=== PATIENT | male | born 1960 | race African-American/Black ===

== ENCOUNTER 2016-10-26 23:27 | Emergency (ER) | payer OTHER ==
[~2016-10-26] VITALS: Ht 170.2 cm; Wt 78.0 kg
[~2016-10-26 23:27] MED LIST: ALLO100T PO; AMLO5TAB4 PO; ASPI81TA2 PO; CLOP75TA2 PO; ISOS60TA4 PO; METO50TA5 PO; OMEP40CA34 PO; TRIC54 PO; ZOLP10TA6 PO
[2016-10-27] MEDS ORDERED: ONDANSETRON HCL 4MG/2ML VIAL IV STA (00:34)
[2016-10-27] MEDS ORDERED: MORPHINE SULFATE 4 MG/ML CPJ (NOT FOR IM USE) IV STA (00:34)
[2016-10-27] MEDS ORDERED: SODIUM CHLORIDE 0.9% 1,000 ML IV ONE (00:34)
[2016-10-27 01:02] LABS: BASOPHILS % 0.8 % (0.0-2.0); EOSINOPHILS % 3.7 % (0.0-5.0); HEMATOCRIT. 39.1 % (42.0-52.0); HEMOGLOBIN. 13.5 g/dL (14.0-18.0); LYMPHOCYTES % 29.6 % (20.0-50.0); MEAN CORPUSCULAR HEMOGLOBIN 30.3 pg (28.0-32.0); MEAN CORPUSCULAR HGB CONC 34.4 g/dL (31.0-37.0); MEAN CORPUSCULAR VOLUME 88.2 fL (80.0-94.0); MEAN PLATELET VOLUME 7.5 fl (7.4-10.4); MONOCYTES % 8.3 % (2.0-8.0); NEUTROPHILS % 57.6 % (40.0-76.0); PLATELET 271 x1000/uL (130-400); RED BLOOD CELL COUNT 4.44 mill/uL (4.7-6.1); RED CELL DISTRIBUTION WIDTH 15.2 % (11.6-14.6); WHITE BLOOD COUNT 7.3 x1000/uL (4.5-11.0)
[2016-10-27 01:06] LABS: CHLORIDE 109 mEq/L (98-107); INDEX HEMOLYSI 2 (1-3); INDEX ICTERIC 1 (1-4); INDEX LIPEMIC 1 (1-3)
[2016-10-27 01:09] LABS: INR 0.9; PARTIAL THROMBOPLASTIN TIME 32.8 sec (24.0-34.0); PROTHROMBIN TIME 9.8 sec
[2016-10-27 01:16] LABS: ALANINE AMINOTRANSFERASE 31 IU/L (13-61); ALBUMIN 3.2 g/dL (3.4-5.0); ANION GAP 18; CALCIUM 8.4 mg/dL (8.5-10.1); CARBON DIOXIDE 19 mEq/L (21-32); UREA NITROGEN BLOOD 13 mg/dL (7-21); eGFR > 60 mL/min (>60)
[2016-10-27 01:38] LABS: LIPASE 4657 IU/L (73-393)
[2016-10-27 02:12] LABS: CLARITY URINE CLEAR (CLEAR); COLOR URINE YELLOW (YELLOW); GLUCOSE URINE NEGATIVE (NEGATIVE); KETONES URINE TRACE (NEGATIVE); LEUKOCYTE ESTERASE URINE NEGATIVE (NEGATIVE); NITRITE URINE NEGATIVE (NEGATIVE); OCCULT BLOOD URINE NEGATIVE (NEGATIVE); PH URINE 5.5 (4.5-8.0); PROTEIN URINE TRACE (NEGATIVE); SPECIFIC GRAVITY URINE 1.023 (1.005-1.030)
[2016-10-27 02:15] LABS: BACTERIA URINE NONE SEEN; CALCIUM PHOSPHATE CRYSTALS UR NONE SEEN /lpf; RBC URINE NONE SEEN /hpf (0-2); SQUAMOUS EPITHELIAL CELL URINE NONE SEEN /lpf (RARE/1+); WAXY CASTS URINE NONE SEEN /lpf; WBC URINE 0-2 /hpf (0-2); YEAST URINE NONE SEEN
[2016-10-27] MEDS ORDERED: ONDANSETRON HCL 4MG/2ML VIAL IV ONE (03:30)
[2016-10-27] MEDS ORDERED: MORPHINE SULFATE 4 MG/ML CPJ (NOT FOR IM USE) IV ONE (03:30)
[2016-10-27 04:14] VITALS: BP 114/72
[2016-10-27] MEDS ORDERED: IOHEXOL-300 100 ML BOTTLE ONE (10:45)
[2016-10-27] MEDS ORDERED: SODIUM CHLORIDE 0.9% 10ML VIAL ONE (10:45)
== END 2016-10-27 05:18 | disposition short-term general hospital (02) ==
LOC: ER 10-27 00:33
DX: K85.90 Acute pancreatitis without necrosis or infection, unspecified (principal); Z79.899 Other long term (current) drug therapy; Z79.82 Long term (current) use of aspirin; F17.200 Nicotine dependence, unspecified, uncomplicated; K80.20 Calculus of gallbladder without cholecystitis without obstruction
CPT/HCPCS: 36415; 74177; 76705; 80053; 81001; 83690; 85025; 85610; 85730; 96361; 96374; 96375; 96376; 99285; A4216; J2270; J2405; J7030; Q9967; Z7610

== ENCOUNTER 2017-01-07 16:12 | Emergency (ER) | payer OTHER ==
[~2017-01-07] VITALS: Ht 170.2 cm; Wt 78.0 kg
[2017-01-07] MEDS ORDERED: ONDANSETRON HCL 4MG/2ML VIAL IV STA (17:03)
[2017-01-07] MEDS ORDERED: MORPHINE SULFATE 4 MG/ML CPJ (NOT FOR IM USE) IV STA (17:03)
[2017-01-07] MEDS ORDERED: SODIUM CHLORIDE 0.9% 1,000 ML IV ONE (17:03)
[2017-01-07] MEDS ORDERED: METRONIDAZOLE 500 MG PREMIX 100 ML IV ONE (17:15)
[2017-01-07] MEDS ORDERED: LEVOFLOXACIN 750MG PREMIX 150 ML IV ONE (17:15)
[2017-01-07 17:31] LABS: BASOPHILS % 0.4 % (0.0-2.0); EOSINOPHILS % 1.9 % (0.0-5.0); HEMATOCRIT. 36.2 % (42.0-52.0); HEMOGLOBIN. 12.7 g/dL (14.0-18.0); LYMPHOCYTES % 25.3 % (20.0-50.0); MEAN CORPUSCULAR HEMOGLOBIN 29.6 pg (28.0-32.0); MEAN CORPUSCULAR VOLUME 84.7 fL (80.0-94.0); MEAN PLATELET VOLUME 7.8 fl (7.4-10.4); MONOCYTES % 7.1 % (2.0-8.0); NEUTROPHILS % 65.3 % (40.0-76.0); PLATELET 252 x1000/uL (130-400); RED BLOOD CELL COUNT 4.28 mill/uL (4.7-6.1); RED CELL DISTRIBUTION WIDTH 14.8 % (11.6-14.6)
[2017-01-07 17:36] LABS: PROTHROMBIN TIME 10.2 sec
[2017-01-07 17:37] LABS: CARBON DIOXIDE 24 mEq/L (21-32); CHLORIDE 107 mEq/L (98-107)
[2017-01-07 17:43] LABS: TROPONIN I < 0.02 ng/mL (0.00-0.04)
[2017-01-07 18:22] LABS: CLARITY URINE CLEAR (CLEAR); COLOR URINE YELLOW (YELLOW); GLUCOSE URINE NEGATIVE (NEGATIVE); KETONES URINE NEGATIVE (NEGATIVE); LEUKOCYTE ESTERASE URINE NEGATIVE (NEGATIVE); NITRITE URINE NEGATIVE (NEGATIVE); OCCULT BLOOD URINE NEGATIVE (NEGATIVE); PROTEIN URINE NEGATIVE (NEGATIVE); SPECIFIC GRAVITY URINE 1.014 (1.005-1.030); UROBILINOGEN URINE 0.2 E.U./dL (0.2-1.0)
[2017-01-07 20:27] VITALS: BP 130/75
== END 2017-01-07 21:30 | disposition home or self-care (01) ==
LOC: ER 17:01 → CANBEDREQ 21:34
DX: K57.92 Diverticulitis of intestine, part unspecified, without perforation or abscess without bleeding (principal); K85.90 Acute pancreatitis without necrosis or infection, unspecified; R10.32 Left lower quadrant pain; F17.200 Nicotine dependence, unspecified, uncomplicated; Z79.82 Long term (current) use of aspirin; Z79.899 Other long term (current) drug therapy
CPT/HCPCS: 36415; 71010; 74176; 80053; 81003; 83605; 83690; 84484; 85025; 85610; 87040; 87086; 93005; 96365; 96366; 96368; 96375; 99285; 99406; J1956; J2270; J2405; J3490; J7030

== ENCOUNTER 2017-04-22 16:54 | Emergency (ER) | payer OTHER ==
[~2017-04-22] VITALS: Ht 170.2 cm; Wt 78.0 kg
[~2017-04-22 16:54] MED LIST changes: +ASPI-1160 PO; -ASPI81TA2 PO; +CLOP75TA16 PO; -CLOP75TA2 PO
[2017-04-22] MEDS ORDERED: MORPHINE SULFATE 4 MG/ML CPJ (NOT FOR IM USE) IV STA (17:37)
[2017-04-22] MEDS ORDERED: ONDANSETRON HCL 4MG/2ML VIAL IV STA (17:37)
[2017-04-22 18:09] LABS: BASOPHILS % 0.8 % (0.0-2.0); EOSINOPHILS % 2.2 % (0.0-5.0); HEMATOCRIT. 37.3 % (42.0-52.0); HEMOGLOBIN. 12.8 g/dL (14.0-18.0); LYMPHOCYTES % 23.5 % (20.0-50.0); MEAN CORPUSCULAR HEMOGLOBIN 29.1 pg (28.0-32.0); MEAN CORPUSCULAR VOLUME 84.8 fL (80.0-94.0); MONOCYTES % 6.7 % (2.0-8.0); NEUTROPHILS % 66.8 % (40.0-76.0); PLATELET 220 x1000/uL (130-400); RED CELL DISTRIBUTION WIDTH 15.2 % (11.6-14.6)
[2017-04-22 18:14] LABS: CARBON DIOXIDE 23 mEq/L (21-32); CHLORIDE 111 mEq/L (98-107)
[2017-04-22 18:20] LABS: ETHANOL BLOOD 35 mg/dL
[2017-04-22] MEDS ORDERED: METRONIDAZOLE 500 MG PREMIX 100 ML IV ONE (20:30)
[2017-04-22] MEDS ORDERED: LEVOFLOXACIN 500MG PREMIX 100 ML IV ONE (20:30)
[2017-04-22] MEDS ORDERED: MORPHINE SULFATE 4 MG/ML CPJ (NOT FOR IM USE) IV ONE (22:30)
[2017-04-22] MEDS ORDERED: ONDANSETRON HCL 4MG/2ML VIAL IV ONE (22:30)
[2017-04-22 22:39] LABS: CLARITY URINE CLEAR (CLEAR); COLOR URINE YELLOW (YELLOW); GLUCOSE URINE NEGATIVE (NEGATIVE); KETONES URINE TRACE (NEGATIVE); LEUKOCYTE ESTERASE URINE NEGATIVE (NEGATIVE); NITRITE URINE NEGATIVE (NEGATIVE); OCCULT BLOOD URINE NEGATIVE (NEGATIVE); PH URINE 5.5 (4.5-8.0); PROTEIN URINE NEGATIVE (NEGATIVE); SPECIFIC GRAVITY URINE 1.018 (1.005-1.030)
[2017-04-22 22:46] VITALS: BP 133/80
== END 2017-04-22 23:28 | disposition short-term general hospital (02) ==
LOC: ER 16:54
DX: K80.20 Calculus of gallbladder without cholecystitis without obstruction (principal); K57.92 Diverticulitis of intestine, part unspecified, without perforation or abscess without bleeding; F17.200 Nicotine dependence, unspecified, uncomplicated; Z79.82 Long term (current) use of aspirin
CPT/HCPCS: 36415; 74176; 80053; 81003; 83690; 85025; 96365; 96375; 96376; 99285; G0482; J1956; J2270; J2405; J3490; J7030; Z7610

== ENCOUNTER 2017-05-13 19:48 | Emergency (ER) | payer OTHER ==
[~2017-05-13] VITALS: Ht 170.2 cm; Wt 79.0 kg
[2017-05-14] MEDS ORDERED: SODIUM CHLORIDE 0.9% 1,000 ML IV ONE (03:41)
[2017-05-14] MEDS ORDERED: MORPHINE SULFATE 4 MG/ML CPJ (NOT FOR IM USE) IV ONE (03:45)
[2017-05-14] MEDS ORDERED: ONDANSETRON HCL 4MG/2ML VIAL IV ONE (03:45)
[2017-05-14 04:17] LABS: BASOPHILS % 0.5 % (0.0-2.0); EOSINOPHILS % 2.2 % (0.0-5.0); HEMATOCRIT. 37.3 % (42.0-52.0); HEMOGLOBIN. 12.8 g/dL (14.0-18.0); LYMPHOCYTES % 25.3 % (20.0-50.0); MEAN CORPUSCULAR HEMOGLOBIN 28.9 pg (28.0-32.0); MEAN CORPUSCULAR VOLUME 84.7 fL (80.0-94.0); MEAN PLATELET VOLUME 8.3 fl (7.4-10.4); MONOCYTES % 7.1 % (2.0-8.0); NEUTROPHILS % 64.9 % (40.0-76.0); PLATELET 215 x1000/uL (130-400); PROTHROMBIN TIME 10.4 sec (9.4-11.6); RED BLOOD CELL COUNT 4.41 mill/uL (4.7-6.1); RED CELL DISTRIBUTION WIDTH 14.8 % (11.6-14.6)
[2017-05-14 04:24] LABS: CARBON DIOXIDE 27 mEq/L (21-32); CHLORIDE 106 mEq/L (98-107)
[2017-05-14 06:14] VITALS: BP 124/81
[2017-05-14 06:30] LABS: CLARITY URINE CLEAR (CLEAR); COLOR URINE YELLOW (YELLOW); GLUCOSE URINE NEGATIVE (NEGATIVE); KETONES URINE NEGATIVE (NEGATIVE); LEUKOCYTE ESTERASE URINE NEGATIVE (NEGATIVE); NITRITE URINE NEGATIVE (NEGATIVE); OCCULT BLOOD URINE NEGATIVE (NEGATIVE); PROTEIN URINE NEGATIVE (NEGATIVE); SPECIFIC GRAVITY URINE 1.014 (1.005-1.030); UROBILINOGEN URINE 0.2 E.U./dL (0.2-1.0)
[2017-05-14 06:39] LABS: *AMPHETAMINES SCREEN URINE NEGATIVE (NEGATIVE); *BARBITURATES SCREEN URINE NEGATIVE (NEGATIVE); *BENZODIAZEPINES SCREEN URINE NEGATIVE (NEGATIVE); *COCAINE SCREEN URINE NEGATIVE (NEGATIVE); CANNABINOID URINE SCREEN NEGATIVE (NEGATIVE); METHADONE URINE SCREEN NEGATIVE (NEGATIVE); OPIATES URINE SCREEN PRESUMTIVE POSITIVE (NEGATIVE); PHENCYCLIDINE URINE SCREEN NEGATIVE (NEGATIVE)
== END 2017-05-14 06:46 | disposition home or self-care (01) ==
LOC: ER 19:48
DX: R10.13 Epigastric pain (principal); R14.0 Abdominal distension (gaseous)
CPT/HCPCS: 36415; 80053; 80305; 81003; 83690; 85025; 85610; 96361; 96374; 96375; 99285; G0482; J2270; J2405; J7030; Z7610

== ENCOUNTER 2017-07-22 08:25 | Inpatient (IN) | payer OTHER ==
[~2017-07-22] VITALS: Ht 170.2 cm; Wt 73.9 kg
[~2017-07-22 08:25] MED LIST changes: +METO-539 PO; -METO50TA5 PO
[2017-07-22] MEDS ORDERED: ONDANSETRON HCL 4MG/2ML VIAL IV STA (09:45)
[2017-07-22] MEDS ORDERED: KETOROLAC 30MG/ML VIAL IV STA (09:45)
[2017-07-22] MEDS ORDERED: SODIUM CHLORIDE 0.9% 1,000 ML IV ONE (09:45)
[2017-07-22] MEDS ORDERED: FAMOTIDINE 20MG/2ML VIAL IV STA (09:45)
[2017-07-22 10:00] LABS: BASOPHILS % 0.7 % (0.0-2.0); HEMATOCRIT. 38.2 % (42.0-52.0); HEMOGLOBIN. 13.3 g/dL (14.0-18.0); LYMPHOCYTES % 10.4 % (20.0-50.0); MEAN CORPUSCULAR HEMOGLOBIN 30.6 pg (28.0-32.0); MEAN CORPUSCULAR VOLUME 87.9 fL (80.0-94.0); MEAN PLATELET VOLUME 7.7 fl (7.4-10.4); MONOCYTES % 5.8 % (2.0-8.0); NEUTROPHILS % 82.1 % (40.0-76.0); PLATELET 245 x1000/uL (130-400); RED BLOOD CELL COUNT 4.35 mill/uL (4.7-6.1); RED CELL DISTRIBUTION WIDTH 15.5 % (11.6-14.6)
[2017-07-22 10:07] LABS: INR 1.1; PROTHROMBIN TIME 11.8 sec (9.4-11.6)
[2017-07-22 10:38] LABS: CARBON DIOXIDE 25 mEq/L (21-32); CHLORIDE 107 mEq/L (98-107)
[2017-07-22] MEDS ORDERED: MORPHINE SULFATE 4 MG/ML CPJ (NOT FOR IM USE) IV ONE (11:15)
[2017-07-22 12:20] VITALS: BP 123/74
[2017-07-22 14:20] VITALS: BP 123/74
[2017-07-22] MEDS ORDERED: ACETAMINOPHEN 325MG TABLET PO PRN (15:15)
[2017-07-22] MEDS ORDERED: CLONIDINE 0.1MG TABLET PO PRN (15:15)
[2017-07-22] MEDS ORDERED: MAGNESIUM/ALUMINUM HYDROXIDE/SIMETHICONE 30ML UDC PO PRN (15:15)
[2017-07-22] MEDS ORDERED: TRAMADOL 50MG TABLET PO PRN (15:15)
[2017-07-22] MEDS ORDERED: LORAZEPAM 0.5MG TABLET PO PRN (15:15)
[2017-07-22] MEDS ORDERED: DIPHENHYDRAMINE 50MG/ML VIAL IV PRN (15:15)
[2017-07-22] MEDS ORDERED: DOCUSATE SODIUM 100MG CAPSULE PO PRN (15:15)
[2017-07-22] MEDS ORDERED: IPRATROPIUM/ALBUTEROL 0.5-3(2.5)MG/3ML NEB INH PRN (15:15)
[2017-07-22] MEDS ORDERED: NA PHOS,M-B/NA PHOS,DI-BA ENEMA 118ML PR PRN (15:15)
[2017-07-22] MEDS ORDERED: KETOROLAC 30MG/ML VIAL IV PRN (15:15)
[2017-07-22] MEDS ORDERED: ONDANSETRON HCL 4MG/2ML VIAL IV PRN (15:15)
[2017-07-22] MEDS ORDERED: GUAIFENESIN 200MG/10ML SUGAR FREE UDC PO PRN (15:15)
[2017-07-22 16:00] VITALS: BP 120/81
[2017-07-22] MEDS ORDERED: ENOXAPARIN 40MG/0.4ML SYR SUBCUT SCH (16:00)
[2017-07-22] MEDS ORDERED: MVI, ADULT NO.1 10 ML, FOLIC ACID 1 MG, THIAMINE HCL 100 MG in SODIUM CHLORIDE 0.9% 1,0... IV NR ×4 (17:00)
[2017-07-22] MEDS: MORPHINE SULFATE 10 MG/ML CPJ IV PRN (18:38)
[2017-07-22 20:00] VITALS: BP 132/75
[2017-07-22] MEDS: ZOLPIDEM TARTRATE 5MG TABLET PO PRN (23:09)
[2017-07-23] VITALS (8 sets, daily range): BP systolic 112–145; BP diastolic 66–90
[2017-07-23] MEDS: SODIUM CHLORIDE 0.9% 1,000 ML IV SCH ×4 (00:30→17:46)
[2017-07-23] MEDS: MORPHINE SULFATE 10 MG/ML CPJ IV PRN ×3 (05:35→18:13)
[2017-07-23 06:57] LABS: BASOPHILS % 0.2 % (0.0-2.0); EOSINOPHILS % 0.7 % (0.0-5.0); HEMATOCRIT. 36.7 % (42.0-52.0); HEMOGLOBIN. 12.4 g/dL (14.0-18.0); LYMPHOCYTES % 10.7 % (20.0-50.0); MEAN CORPUSCULAR HEMOGLOBIN 29.3 pg (28.0-32.0); MEAN PLATELET VOLUME 8.3 fl (7.4-10.4); MONOCYTES % 4.6 % (2.0-8.0); NEUTROPHILS % 83.8 % (40.0-76.0); PLATELET 225 x1000/uL (130-400); RED BLOOD CELL COUNT 4.22 mill/uL (4.7-6.1); RED CELL DISTRIBUTION WIDTH 15.4 % (11.6-14.6)
[2017-07-23 07:19] LABS: AMYLASE 399 IU/L (25-115); CARBON DIOXIDE 24 mEq/L (21-32); CHLORIDE 111 mEq/L (98-107)
[2017-07-23] MEDS: NITROGLYCERIN 0.4MG TABLET SL SL PRN ×2 (11:23→16:13)
[2017-07-23 13:19] LABS: CREATINE KINASE MB FRACTION 30.3 ng/mL (0.5-3.6)
[2017-07-23] MEDS ORDERED: POTASSIUM CHLORIDE INJ 40 MEQ in DEXT 5% WATER 500 ML IV NR (14:30)
[2017-07-23] MEDS ORDERED: ASPIRIN 325MG EC TABLET PO NR (15:00)
[2017-07-23] MEDS ORDERED: ENOXAPARIN 80MG/0.8ML SYR SUBCUT SCH (15:00)
[2017-07-23 16:21] LABS: CLARITY URINE CLEAR (CLEAR); COLOR URINE YELLOW (YELLOW); KETONES URINE TRACE (NEGATIVE); LEUKOCYTE ESTERASE URINE NEGATIVE (NEGATIVE); NITRITE URINE NEGATIVE (NEGATIVE); OCCULT BLOOD URINE 1+ (NEGATIVE); PROTEIN URINE 1+ (NEGATIVE); SPECIFIC GRAVITY URINE 1.016 (1.005-1.030)
[2017-07-23 16:57] LABS: *AMPHETAMINES SCREEN URINE NEGATIVE (NEGATIVE); *BARBITURATES SCREEN URINE NEGATIVE (NEGATIVE); *BENZODIAZEPINES SCREEN URINE NEGATIVE (NEGATIVE); *COCAINE SCREEN URINE PRESUMTIVE POSITIVE (NEGATIVE); CANNABINOID URINE SCREEN NEGATIVE (NEGATIVE); METHADONE URINE SCREEN NEGATIVE (NEGATIVE); OPIATES URINE SCREEN PRESUMTIVE POSITIVE (NEGATIVE); PHENCYCLIDINE URINE SCREEN NEGATIVE (NEGATIVE)
[2017-07-23] MEDS: ASPIRIN 325MG EC TABLET PO SCH (20:08)
[2017-07-23] MEDS: ENOXAPARIN 60MG/0.6ML SYR SUBCUT SCH (20:09)
[2017-07-23] MEDS: NITROGLYCERIN OINT 1GM/INCH UDPKT TD SCH (20:12)
[2017-07-23] MEDS: ZOLPIDEM TARTRATE 5MG TABLET PO PRN (22:46)
[2017-07-24] VITALS (9 sets, daily range): BP systolic 105–133; BP diastolic 59–87
[2017-07-24] MEDS: MORPHINE SULFATE 10 MG/ML CPJ IV PRN (00:05)
[2017-07-24] MEDS: NITROGLYCERIN OINT 1GM/INCH UDPKT TD SCH ×3 (00:06→11:12)
[2017-07-24] MEDS: SODIUM CHLORIDE 0.9% 1,000 ML IV SCH ×2 (00:06→11:07)
[2017-07-24] MEDS: NITROGLYCERIN 0.4MG TABLET SL SL PRN ×2 (05:34→05:45)
[2017-07-24 05:57] LABS: HEMATOCRIT 38.1 % (42.0-52.0); HEMOGLOBIN 12.8 g/dL (14.0-18.0); MEAN CORPUSCULAR HEMOGLOBIN 30.1 pg (28.0-32.0); MEAN CORPUSCULAR VOLUME 89.7 fL (80.0-94.0); PLATELET 218 x1000/uL (130-400); RED BLOOD CELL COUNT 4.25 mill/uL (4.7-6.1); RED CELL DISTRIBUTION WIDTH 15.2 % (11.6-14.6)
[2017-07-24] MEDS ORDERED: MORPHINE SULFATE 2 MG/ML CPJ (NOT FOR IM USE) IV ONE (06:15)
[2017-07-24 06:51] LABS: CARBON DIOXIDE 22 mEq/L (21-32); CHLORIDE 107 mEq/L (98-107)
[2017-07-24] MEDS: ASPIRIN 325MG EC TABLET PO SCH (08:48)
[2017-07-24] MEDS: ENOXAPARIN 60MG/0.6ML SYR SUBCUT SCH (08:49)
[2017-07-24] MEDS ORDERED: POTASSIUM CHLORIDE 20MEQ TABLET SR PO SCH (09:45)
[2017-07-24] MEDS ORDERED: KCL 20MEQ/100ML PREMIX 100 ML IV ONE ×2 (10:00→10:15)
[2017-07-24] MEDS ORDERED: POTASSIUM CHLORIDE 20MEQ/PACKET PO NR (10:00)
[2017-07-24] MEDS ORDERED: POTASSIUM CHLORIDE INJ 20 MEQ in SODIUM CHLORIDE 0.9% 100 ML IV NR ×2 (11:00→11:30)
== END 2017-07-24 15:50 | disposition short-term general hospital (02) | DRG 438 ==
LOC: ER 08:33 → 6EST 11:18 → EDBEDREQ 11:19 → ENRESERV 11:50 → 5EST 07-23 15:52
PROVIDERS: ADMIT Internal Medicine; ATTEND Internal Medicine
DX: K85.20 Alcohol induced acute pancreatitis without necrosis or infection (principal); I21.4 Non-ST elevation (NSTEMI) myocardial infarction; E44.1 Mild protein-calorie malnutrition; I20.1 Angina pectoris with documented spasm; F14.10 Cocaine abuse, uncomplicated; F10.10 Alcohol abuse, uncomplicated; D64.9 Anemia, unspecified; E78.00 Pure hypercholesterolemia, unspecified; E78.1 Pure hyperglyceridemia; F17.210 Nicotine dependence, cigarettes, uncomplicated; I10 Essential (primary) hypertension; Z79.82 Long term (current) use of aspirin; Z79.899 Other long term (current) drug therapy; Z68.25 Body mass index [BMI] 25.0-25.9, adult; Z71.51 Drug abuse counseling and surveillance of drug abuser
CPT/HCPCS: 36415; 71010; 76700; 80053; 80061; 80305; 81001; 82150; 82550; 82553; 83036; 83690; 84484; 85025; 85027; 85610; 93005; 93970; 96374; 96375; 96376; 99285; J1200; J1650; J1885; J2270; J2405; J3411; J3480; J3490; J7030; J7050; J7060; J7620

== ENCOUNTER 2017-12-21 10:58 | Emergency (ER) | payer OTHER ==
[~2017-12-21] VITALS: Ht 170.2 cm; Wt 78.0 kg
[2017-12-21] MEDS ORDERED: PHENYLEPHRINE HCL 1% 15 ML NASAL SPRAY BOTHNSTRLS PRN (11:30)
[2017-12-21 12:10] LABS: BASOPHILS % 0.9 % (0.0-2.0); EOSINOPHILS % 1.6 % (0.0-5.0); HEMATOCRIT. 40.3 % (42.0-52.0); HEMOGLOBIN. 13.9 g/dL (14.0-18.0); LYMPHOCYTES % 17.3 % (20.0-50.0); MEAN CORPUSCULAR HEMOGLOBIN 29.7 pg (28.0-32.0); MEAN PLATELET VOLUME 7.5 fl (7.4-10.4); NEUTROPHILS % 74.2 % (40.0-76.0); PLATELET 297 x1000/uL (130-400); RED BLOOD CELL COUNT 4.69 mill/uL (4.7-6.1)
[2017-12-21] MEDS ORDERED: PHENYLEPHRINE HCL 0.5% 15ML NASAL SPRAY BOTHNSTRLS PRN (12:15)
[2017-12-21 12:17] LABS: CHLORIDE 108 mEq/L (98-107)
[2017-12-21 12:21] LABS: PARTIAL THROMBOPLASTIN TIME 32.3 sec (23.4-31.0); PROTHROMBIN TIME 10.1 sec (9.4-11.6)
[2017-12-21 13:29] VITALS: BP 151/89
[2017-12-21] MEDS ORDERED: HYDROCODONE/ACETAMINOPHEN 5/325MG TABLET PO ONE (13:30)
== END 2017-12-21 13:44 | disposition home or self-care (01) ==
LOC: ER 11:54
DX: R04.0 Epistaxis (principal); I10 Essential (primary) hypertension; E78.00 Pure hypercholesterolemia, unspecified; I25.2 Old myocardial infarction; I25.10 Atherosclerotic heart disease of native coronary artery without angina pectoris; F17.200 Nicotine dependence, unspecified, uncomplicated; Z79.02 Long term (current) use of antithrombotics/antiplatelets
CPT/HCPCS: 30901; 36415; 80053; 85025; 85610; 85730; 99284; Z7610

== ENCOUNTER 2018-03-02 10:47 | Emergency (ER) | payer OTHER ==
[~2018-03-02] VITALS: Ht 172.7 cm; Wt 86.0 kg
[2018-03-02] MEDS ORDERED: ASPI-1158 PO (11:13)
[2018-03-02] MEDS ORDERED: METO25TA6 PO (11:13)
[2018-03-02] MEDS ORDERED: ISOS30TA6 PO (11:13)
[2018-03-02] MEDS ORDERED: FERR325T6 PO (11:13)
[2018-03-02] MEDS ORDERED: CLOP75TA33 PO (11:13)
[2018-03-02] MEDS ORDERED: AMLO10TA80 PO (11:13)
[2018-03-02] MEDS ORDERED: OMEP20CA10 PO (11:13)
[2018-03-02 11:36] LABS: BASOPHILS % 0.5 % (0.0-2.0); EOSINOPHILS % 2.4 % (0.0-5.0); HEMOGLOBIN. 14.2 g/dL (14.0-18.0); LYMPHOCYTES % 10.7 % (20.0-50.0); MEAN CORPUSCULAR HEMOGLOBIN 30.5 pg (28.0-32.0); MEAN CORPUSCULAR VOLUME 88.2 fL (80.0-94.0); MEAN PLATELET VOLUME 7.1 fl (7.4-10.4); MONOCYTES % 5.4 % (2.0-8.0); PLATELET 244 x1000/uL (130-400); RED BLOOD CELL COUNT 4.65 mill/uL (4.7-6.1); RED CELL DISTRIBUTION WIDTH 15.4 % (11.6-14.6)
[2018-03-02 11:40] LABS: CHLORIDE 108 mEq/L (98-107)
[2018-03-02 11:42] LABS: PROTHROMBIN TIME 10.3 sec (9.4-11.6)
[2018-03-02 11:44] LABS: CLARITY URINE CLEAR (CLEAR); COLOR URINE ORANGE (YELLOW); KETONES URINE TRACE (NEGATIVE); LEUKOCYTE ESTERASE URINE NEGATIVE (NEGATIVE); NITRITE URINE NEGATIVE (NEGATIVE); OCCULT BLOOD URINE NEGATIVE (NEGATIVE); PH URINE 5.5 (4.5-8.0); PROTEIN URINE 1+ (NEGATIVE); SPECIFIC GRAVITY URINE 1.023 (1.005-1.030)
[2018-03-02] MEDS ORDERED: ONDANSETRON HCL 4MG/2ML VIAL IV STA (12:35)
[2018-03-02] MEDS ORDERED: SODIUM CHLORIDE 0.9% 1,000 ML IV ONE (12:35)
[2018-03-02] MEDS ORDERED: MORPHINE SULFATE 4 MG/ML CPJ (NOT FOR IM USE) IV STA (12:35)
[2018-03-02 15:54] VITALS: BP 121/80
== END 2018-03-02 16:25 | disposition short-term general hospital (02) ==
LOC: ER 11:27
DX: K85.90 Acute pancreatitis without necrosis or infection, unspecified (principal); R10.9 Unspecified abdominal pain; I25.10 Atherosclerotic heart disease of native coronary artery without angina pectoris; E78.00 Pure hypercholesterolemia, unspecified; I10 Essential (primary) hypertension; I25.2 Old myocardial infarction; F17.200 Nicotine dependence, unspecified, uncomplicated; Z79.82 Long term (current) use of aspirin
CPT/HCPCS: 36415; 74176; 80053; 81003; 83690; 85025; 85610; 96374; 96375; 99285; J2270; J2405; J7030; Z7610

== ENCOUNTER 2018-03-30 12:33 | Emergency (ER) | payer OTHER ==
[~2018-03-30] VITALS: Ht 167.6 cm; Wt 76.0 kg
[~2018-03-30 12:33] MED LIST changes: -ALLO100T PO; +AMLO10TA80 PO; -AMLO5TAB4 PO; +ASPI-1158 PO; -ASPI-1160 PO; -CLOP75TA16 PO; +CLOP75TA33 PO; +FERR325T6 PO; +ISOS30TA6 PO; -ISOS60TA4 PO; -METO-539 PO; +METO25TA6 PO; +OMEP20CA10 PO; -OMEP40CA34 PO; -TRIC54 PO; -ZOLP10TA6 PO
[2018-03-30 13:31] LABS: BASOPHILS % 0.6 % (0.0-2.0); EOSINOPHILS % 1.9 % (0.0-5.0); HEMATOCRIT. 39.3 % (42.0-52.0); HEMOGLOBIN. 13.4 g/dL (14.0-18.0); LYMPHOCYTES % 11.9 % (20.0-50.0); MEAN CORPUSCULAR HEMOGLOBIN 29.7 pg (28.0-32.0); MEAN CORPUSCULAR VOLUME 87.3 fL (80.0-94.0); MEAN PLATELET VOLUME 8.1 fl (7.4-10.4); MONOCYTES % 5.8 % (2.0-8.0); NEUTROPHILS % 79.8 % (40.0-76.0); PLATELET 250 x1000/uL (130-400); RED BLOOD CELL COUNT 4.51 mill/uL (4.7-6.1); RED CELL DISTRIBUTION WIDTH 15.4 % (11.6-14.6)
[2018-03-30 13:37] LABS: CHLORIDE 107 mEq/L (98-107)
[2018-03-30 13:39] LABS: PARTIAL THROMBOPLASTIN TIME 31.7 sec (23.4-31.0)
[2018-03-30 13:44] LABS: ETHANOL BLOOD < 10 mg/dL
[2018-03-30 13:49] LABS: CREATINE KINASE 140 IU/L (39-308)
[2018-03-30 13:50] LABS: CREATINE KINASE MB FRACTION < 1.0 ng/mL (0.5-3.6)
[2018-03-30] MEDS ORDERED: ONDANSETRON HCL 4MG/2ML VIAL IV STA (15:35)
[2018-03-30] MEDS ORDERED: MORPHINE SULFATE 4 MG/ML CPJ (NOT FOR IM USE) IV STA (15:35)
[2018-03-30] MEDS ORDERED: SODIUM CHLORIDE 0.9% 1,000 ML IV ONE (15:35)
[2018-03-30] MEDS ORDERED: FAMOTIDINE 20MG/2ML VIAL IV ONE (15:45)
[2018-03-30 16:51] LABS: CLARITY URINE CLEAR (CLEAR); COLOR URINE YELLOW (YELLOW); KETONES URINE NEGATIVE (NEGATIVE); LEUKOCYTE ESTERASE URINE TRACE (NEGATIVE); NITRITE URINE NEGATIVE (NEGATIVE); OCCULT BLOOD URINE NEGATIVE (NEGATIVE); PH URINE 5.5 (4.5-8.0); PROTEIN URINE NEGATIVE (NEGATIVE); SPECIFIC GRAVITY URINE 1.018 (1.005-1.030); UROBILINOGEN URINE 0.2 E.U./dL (0.2-1.0)
[2018-03-30 17:12] LABS: *AMPHETAMINES SCREEN URINE NEGATIVE (NEGATIVE); *BARBITURATES SCREEN URINE NEGATIVE (NEGATIVE); *BENZODIAZEPINES SCREEN URINE NEGATIVE (NEGATIVE); CANNABINOID URINE SCREEN NEGATIVE (NEGATIVE)
[2018-03-30 17:13] LABS: *COCAINE SCREEN URINE NEGATIVE (NEGATIVE)
[2018-03-30 17:15] LABS: METHADONE URINE SCREEN NEGATIVE (NEGATIVE); OPIATES URINE SCREEN NEGATIVE (NEGATIVE)
[2018-03-30 17:16] LABS: PHENCYCLIDINE URINE SCREEN NEGATIVE (NEGATIVE)
[2018-03-30 17:24] VITALS: BP 122/70
== END 2018-03-30 17:44 | disposition short-term general hospital (02) ==
LOC: ER 13:03
DX: K85.10 Biliary acute pancreatitis without necrosis or infection (principal); I10 Essential (primary) hypertension; F17.200 Nicotine dependence, unspecified, uncomplicated; Z87.19 Personal history of other diseases of the digestive system
CPT/HCPCS: 36415; 71045; 76705; 80053; 80305; 81003; 82550; 82553; 83690; 83735; 84484; 85025; 85610; 85730; 93005; 96374; 96375; 99285; G0482; J2270; J2405; J3490; J7030

== ENCOUNTER 2018-04-11 15:27 | Emergency (ER) | payer OTHER ==
[~2018-04-11] VITALS: Ht 170.2 cm; Wt 70.0 kg
[2018-04-11] MEDS ORDERED: SODIUM CHLORIDE 0.9% 1,000 ML IV NR (16:11)
[2018-04-11 17:13] LABS: BASOPHILS % 0.3 % (0.0-2.0); EOSINOPHILS % 1.3 % (0.0-5.0); HEMOGLOBIN. 12.8 g/dL (14.0-18.0); LYMPHOCYTES % 11.1 % (20.0-50.0); MEAN CORPUSCULAR HEMOGLOBIN 29.4 pg (28.0-32.0); MEAN CORPUSCULAR VOLUME 87.3 fL (80.0-94.0); MEAN PLATELET VOLUME 7.9 fl (7.4-10.4); MONOCYTES % 5.3 % (2.0-8.0); PLATELET 327 x1000/uL (130-400); RED BLOOD CELL COUNT 4.35 mill/uL (4.7-6.1); RED CELL DISTRIBUTION WIDTH 15.7 % (11.6-14.6)
[2018-04-11 17:16] LABS: CHLORIDE 106 mEq/L (98-107)
[2018-04-11 17:19] LABS: PROTHROMBIN TIME 9.9 sec (9.1-11.1)
[2018-04-11 17:24] LABS: ETHANOL BLOOD < 10 mg/dL
[2018-04-11] MEDS ORDERED: ONDANSETRON HCL 4MG/2ML VIAL IV STA (17:41)
[2018-04-11] MEDS ORDERED: MORPHINE SULFATE 4 MG/ML CPJ (NOT FOR IM USE) IV STA (17:41)
[2018-04-11] MEDS ORDERED: FAMOTIDINE 20MG/2ML VIAL IV STA (17:41)
[2018-04-11 18:20] LABS: CLARITY URINE CLEAR (CLEAR); COLOR URINE DARK YELLOW (YELLOW); KETONES URINE NEGATIVE (NEGATIVE); LEUKOCYTE ESTERASE URINE NEGATIVE (NEGATIVE); NITRITE URINE NEGATIVE (NEGATIVE); OCCULT BLOOD URINE NEGATIVE (NEGATIVE); PROTEIN URINE TRACE (NEGATIVE); SPECIFIC GRAVITY URINE 1.021 (1.005-1.030)
[2018-04-11 18:44] LABS: *AMPHETAMINES SCREEN URINE NEGATIVE (NEGATIVE); *BARBITURATES SCREEN URINE NEGATIVE (NEGATIVE); *BENZODIAZEPINES SCREEN URINE NEGATIVE (NEGATIVE); *COCAINE SCREEN URINE NEGATIVE (NEGATIVE); METHADONE URINE SCREEN NEGATIVE (NEGATIVE); OPIATES URINE SCREEN PRESUMTIVE POSITIVE (NEGATIVE); PHENCYCLIDINE URINE SCREEN NEGATIVE (NEGATIVE)
[2018-04-11 18:45] LABS: CANNABINOID URINE SCREEN PRESUMTIVE POSITIVE (NEGATIVE)
[2018-04-11] MEDS ORDERED: PIPERACILLIN/TAZ 3.375G PREMIX 50 ML IV ONE (19:30)
[2018-04-11] MEDS ORDERED: FENTANYL CITRATE/PF 50MCG/ML 2ML VIAL IV ONE (19:30)
[2018-04-11 21:24] VITALS: BP 122/66
== END 2018-04-11 21:37 | disposition short-term general hospital (02) ==
LOC: ER 15:27
DX: K85.10 Biliary acute pancreatitis without necrosis or infection (principal); I10 Essential (primary) hypertension; R10.13 Epigastric pain; G89.29 Other chronic pain; F17.200 Nicotine dependence, unspecified, uncomplicated; Z79.899 Other long term (current) drug therapy
CPT/HCPCS: 36415; 76705; 80053; 80305; 81003; 83690; 85025; 85610; 96361; 96365; 96366; 96375; 99285; G0482; J2270; J2405; J2543; J3010; J3490; J7030; Z7610

== ENCOUNTER 2018-05-30 13:11 | Emergency (ER) | payer OTHER ==
[~2018-05-30] VITALS: Ht 170.2 cm; Wt 74.0 kg
[2018-05-30] MEDS ORDERED: ONDANSETRON HCL 4MG/2ML INJ IV STA (16:37)
[2018-05-30] MEDS ORDERED: SODIUM CHLORIDE 0.9% 1,000 ML IV ONE (16:37)
[2018-05-30] MEDS ORDERED: MORPHINE SULFATE 4 MG/ML CPJ (NOT FOR IM USE) IV STA (16:37)
[2018-05-30 17:07] LABS: BASOPHILS % 0.4 % (0.0-2.0); EOSINOPHILS % 1.2 % (0.0-5.0); HEMOGLOBIN. 12.5 g/dL (14.0-18.0); LYMPHOCYTES % 8.9 % (20.0-50.0); MEAN CORPUSCULAR HEMOGLOBIN 29.2 pg (28.0-32.0); MEAN CORPUSCULAR VOLUME 86.2 fL (80.0-94.0); MEAN PLATELET VOLUME 8.5 fl (7.4-10.4); MONOCYTES % 4.9 % (2.0-8.0); NEUTROPHILS % 84.6 % (40.0-76.0); PLATELET 216 x1000/uL (130-400); RED BLOOD CELL COUNT 4.29 mill/uL (4.7-6.1); RED CELL DISTRIBUTION WIDTH 15.4 % (11.6-14.6)
[2018-05-30 17:13] LABS: CHLORIDE 106 mEq/L (98-107)
[2018-05-30 18:56] LABS: CLARITY URINE CLEAR (CLEAR); COLOR URINE YELLOW (YELLOW); KETONES URINE NEGATIVE (NEGATIVE); LEUKOCYTE ESTERASE URINE NEGATIVE (NEGATIVE); NITRITE URINE NEGATIVE (NEGATIVE); OCCULT BLOOD URINE NEGATIVE (NEGATIVE); PROTEIN URINE NEGATIVE (NEGATIVE); SPECIFIC GRAVITY URINE 1.016 (1.005-1.030); UROBILINOGEN URINE 0.2 E.U./dL (0.2-1.0)
[2018-05-30 19:07] LABS: *AMPHETAMINES SCREEN URINE NEGATIVE (NEGATIVE); *BARBITURATES SCREEN URINE NEGATIVE (NEGATIVE); *BENZODIAZEPINES SCREEN URINE NEGATIVE (NEGATIVE)
[2018-05-30 19:09] LABS: *COCAINE SCREEN URINE NEGATIVE (NEGATIVE); CANNABINOID URINE SCREEN NEGATIVE (NEGATIVE); METHADONE URINE SCREEN NEGATIVE (NEGATIVE); OPIATES URINE SCREEN PRESUMTIVE POSITIVE (NEGATIVE); PHENCYCLIDINE URINE SCREEN NEGATIVE (NEGATIVE)
[2018-05-30 19:15] VITALS: BP 120/85
== END 2018-05-30 19:40 | disposition home or self-care (01) ==
LOC: ER 18:09
DX: R10.32 Left lower quadrant pain (principal); R19.7 Diarrhea, unspecified; D72.829 Elevated white blood cell count, unspecified; E78.00 Pure hypercholesterolemia, unspecified; I10 Essential (primary) hypertension; I25.2 Old myocardial infarction; F17.200 Nicotine dependence, unspecified, uncomplicated; Z90.49 Acquired absence of other specified parts of digestive tract; Z79.899 Other long term (current) drug therapy
CPT/HCPCS: 36415; 74176; 80053; 80305; 81003; 83690; 85025; 96361; 96374; 96375; 99285; J2270; J2405; J7030

== ENCOUNTER 2018-09-04 09:32 | Emergency (ER) | payer OTHER | END 2018-09-04 11:48 | disposition left against medical advice (07) | LOC: ER 09:32 | DX: Z53.21 Procedure and treatment not carried out due to patient leaving prior to being seen by health care provider (principal) ==